=== PATIENT | female | born 1975 | race Two or more races ===

== ENCOUNTER 2024-03-27 12:55 | Emergency (ER) | payer OTHER ==
[~2024-03-27] VITALS: Ht 157.5 cm; Wt 55.8 kg
[2024-03-27] MEDS ORDERED: DEXAMETHASONE SODIUM PHOSPHATE 4 MG/ML VIAL IM STA (15:48)
[2024-03-27] MEDS ORDERED: DOXYCYCLINE HYCLATE 100MG IV STA (15:51)
[2024-03-27] MEDS ORDERED: ORPHENADRINE CITRATE 30 MG/ML AMPUL IM STA (15:53)
[2024-03-27] MEDS ORDERED: 3-DAY VAGINAL C21 GM VAG (16:11)
[2024-03-27] MEDS ORDERED: ACIDOPHILUS1 EAC3 PO (16:11)
[2024-03-27] MEDS ORDERED: CIPRO500 MG PO (16:13)
[2024-03-27] MEDS ORDERED: CIPROFLOXA500 MG/5 M PO (16:15)
== END 2024-03-27 17:12 | disposition home or self-care (01) ==
LOC: ER 12:57
DX: N39.0 Urinary tract infection, site not specified (principal); Z88.0 Allergy status to penicillin

== ENCOUNTER 2025-05-03 11:56 | Inpatient (IN) | payer OTHER ==
[~2025-05-03] VITALS: Ht 165.1 cm; Wt 70.3 kg
[~2025-05-03 11:56] MED LIST: 3-DAY VAGINAL C21 GM VAG; ACIDOPHILUS1 EAC3 PO; CIPRO500 MG PO; CIPROFLOXA500 MG/5 M PO
[2025-05-03] MEDS ORDERED: UCERIS9 MG (13:21)
[2025-05-03] MEDS ORDERED: ALBUTEROL2.5 MG/3 M (13:21)
[2025-05-03] MEDS ORDERED: MILLIPRED5 MG PO (13:24)
[2025-05-03] MEDS ORDERED: AZITHROMYCIN250 MG (13:25)
[2025-05-03] MEDS ORDERED: METHYLPREDNISOLONE SOD SUCC 125 MG VIAL IV STA (13:34)
[2025-05-03] MEDS ORDERED: IPRATROPIUM BROMIDE 0.5 MG/2.5 ML AMPUL.NEB IH STA (13:35)
[2025-05-03] MEDS ORDERED: LEVALBUTEROL HCL 1.25 MG/3 ML SOLUTION IH SCH ×2 (13:45→21:00)
[2025-05-03] MEDS ORDERED: METHYLPREDNISOLONE SOD SUCC 125 MG VIAL ONE (15:24)
[2025-05-03 16:30] LABS: BASO % 0.2 % (0.1-1.2); EOS # 0.02 (0.04-0.54); EOS % 0.2 % (0.7-7.0); LYMPH # 1.34 (1.18-3.74); LYMPH % 14.7 % (19.3-53.1); MEAN PLATELET VOLUME 9.10 fl (9.4-12.4); MONO # 0.45 (0.24-0.82); MONO % 4.9 % (4.7-12.5); NEUT # 7.27 (1.56-6.13); NEUT % 79.7 % (34.0-71.1); RED CELL DISTRIBUTION WIDTH 12.5 % (11.6-14.4)
[2025-05-03 17:08] LABS: COVID-19 AG NEGATIVE (NEGATIVE)
[2025-05-03 17:18] LABS: ALT/SGPT 22 U/L (12-78); AST/SGOT 13 U/L (15-37); BILIRUBIN TOTAL 0.60 mg/dL (0.3-1.2); BUN CREA RATIO 21 (7.0-25.0); CREATININE SERUM 0.66 mg/dL (0.55-1.02); GFR 95.19; GLOBULINA 3.9 G/DL (2.4-3.5); GLUCOSE FASTING 102 mg/dL (65-100); OSMOLALITY SERUM 282 MOSM/KG (275-295)
[2025-05-03] MEDS ORDERED: IPRATROPIUM BROMIDE 0.5 MG/2.5 ML AMPUL.NEB IH ONE (17:33)
[2025-05-03] MEDS ORDERED: LEVALBUTEROL HCL 1.25 MG/3 ML SOLUTION IH ONE (17:33)
[2025-05-03] MEDS ORDERED: ACETAMINOPHEN 500 MG GEL..CAP PO PRN (19:45)
[2025-05-03] MEDS ORDERED: OSELTAMIVIR PHOSPHATE 75 MG CAPSULE PO SCH (19:45)
[2025-05-03] MEDS ORDERED: METHYLPREDNISOLONE SOD SUCC 40 MG VIAL IV SCH (19:45)
[2025-05-03] MEDS ORDERED: 0.9 % SODIUM CHLORIDE 1,000 ML IV SCH (19:45)
[2025-05-03] MEDS ORDERED: MONTELUKAST SODIUM 10 MG TABLET PO SCH (19:46)
[2025-05-03] MEDS ORDERED: levoFLOXacin IN DEXTROSE 5 % 150 ML IV SCH (19:46)
[2025-05-03] MEDS ORDERED: FAMOTIDINE/PF 20 MG in 0.9 % SODIUM CHLORIDE 8 ML IV PUSH SCH (19:46)
[2025-05-03 20:32] VITALS: BP 100/60
[2025-05-03] MEDS ORDERED: GUAIFEN/DEXTROMETHORPHAN/PE 10 ML BLIST.PACK PO SCH (21:00)
[2025-05-03] MEDS ORDERED: IPRATROPIUM BROMIDE 0.5 MG/2.5 ML AMPUL.NEB IH SCH (21:00)
[2025-05-03] MEDS ORDERED: GUAIFEN/DEXTROMETHORPHAN/PE 10 ML BLIST.PACK PO ONE (21:02)
[2025-05-03] MEDS ORDERED: levoFLOXacin IN DEXTROSE 5 % 5 MG/ML PIGGYBAG IV ONE (21:02)
[2025-05-03] MEDS ORDERED: MONTELUKAST SODIUM 10 MG TABLET PO ONE (21:02)
[2025-05-03] MEDS ORDERED: OSELTAMIVIR PHOSPHATE 75 MG CAPSULE PO ONE (21:02)
[2025-05-03] MEDS ORDERED: FAMOTIDINE/PF 20 MG/2 ML VIAL ONE (21:02)
[2025-05-03 21:14] LABS: URINE APPEARANCE Clear; URINE BILIRRUBIN Negative (NEGATIVE); URINE BLOOD Negative; URINE COLOR Yellow; URINE GLUCOSE Negative (NEGATIVE); URINE KETONE Trace (NEGATIVE); URINE LEUKOCYTE Negative; URINE NITRATE Negative; URINE PROTEIN Negative (NEGATIVE); URINE UROBILINOGEN 0.2 E.U./dl
[2025-05-03 21:18] LABS: URINE BACTERIA 1397.8 uL (0.0-1933); URINE EPITHELIAL CELLS 15.9 uL (0.0-38.8); URINE RBC 10.5 uL (0.0-20.8); URINE WBC 19.0 uL (0.0-23.2)
[2025-05-03 21:19] LABS: URINE CAST 0.14 uL (0.0-1.40)
[2025-05-03 23:31] VITALS: BP 128/86; O2SAT 97
[2025-05-04 02:59] VITALS: BP 136/87; O2SAT 98
[2025-05-04 06:35] LABS: INR 1.04
[2025-05-04 08:00] VITALS: BP 111/72; O2SAT 97
[2025-05-04] MEDS ORDERED: FLUTICASONE PROPIONATE 50 MCG SPRAY NASAL SCH (12:00)
[2025-05-04] MEDS ORDERED: LORATADINE 10 MG TABLET PO NR (12:15)
[2025-05-04] MEDS ORDERED: IPRATROPIUM/ALBUTEROL SULFATE 3 ML AMPUL.NEB IH SCH (13:00)
[2025-05-04 16:00] VITALS: BP 109/68; O2SAT 96
[2025-05-05 00:30] VITALS: BP 103/64; O2SAT 96
[2025-05-05 06:29] LABS: BASO % 0.1 % (0.1-1.2); EOS # 0.00 (0.04-0.54); EOS % 0.0 % (0.7-7.0); LYMPH # 0.40 (1.18-3.74); LYMPH % 4.3 % (19.3-53.1); MEAN PLATELET VOLUME 9.50 fl (9.4-12.4); MONO # 0.29 (0.24-0.82); MONO % 3.1 % (4.7-12.5); NEUT # 8.44 (1.56-6.13); NEUT % 91.7 % (34.0-71.1); RED CELL DISTRIBUTION WIDTH 12.9 % (11.6-14.4)
[2025-05-05 07:07] LABS: ALT/SGPT 20 U/L (12-78); AST/SGOT 10 U/L (15-37); BILIRUBIN TOTAL 0.45 mg/dL (0.3-1.2); BUN CREA RATIO 21 (7.0-25.0); CREATININE SERUM 0.61 mg/dL (0.55-1.02); GFR 104.24; GLOBULINA 2.9 G/DL (2.4-3.5); GLUCOSE FASTING 126 mg/dL (65-100); OSMOLALITY SERUM 281 MOSM/KG (275-295)
[2025-05-05 08:46] VITALS: BP 124/82; O2SAT 97
[2025-05-05] MEDS ORDERED: LORATADINE 10 MG TABLET PO SCH (09:00)
[2025-05-05 16:08] VITALS: BP 124/84; O2SAT 95
[2025-05-06 00:25] VITALS: BP 110/69; O2SAT 95
[2025-05-06 08:16] VITALS: BP 115/74; O2SAT 95
[2025-05-06 15:20] VITALS: BP 124/78; O2SAT 95
[2025-05-07 00:27] VITALS: BP 125/74; O2SAT 96
[2025-05-07 08:48] VITALS: BP 109/73; O2SAT 98
[2025-05-07 15:56] VITALS: BP 119/75; O2SAT 95
[2025-05-07] MEDS ORDERED: SODIUM CHLORIDE FOR INHALATION 1 VIAL.NEB IH SCH (21:00)
[2025-05-08 00:04] VITALS: BP 120/79; O2SAT 95
[2025-05-08 08:00] VITALS: BP 114/69; O2SAT 97
[2025-05-08 16:00] VITALS: BP 124/73; O2SAT 96
[2025-05-09 00:08] VITALS: BP 118/72; O2SAT 97
[2025-05-09 08:28] VITALS: BP 119/78; O2SAT 99
[2025-05-09] MEDS ORDERED: METHYLPREDNISOLONE SOD SUCC 40 MG VIAL IV SCH (09:00)
[2025-05-09] MEDS ORDERED: SODIUM CHLORIDE 0.45 % 1,000 ML IV SCH (09:15)
[2025-05-09] MEDS ORDERED: METHYLPREDNISOLONE ACETATE 80 MG/ML VIAL IM ONE (09:30)
[2025-05-09] MEDS ORDERED: LEVALBUTEROL HCL 1.25 MG/3 ML SOLUTION IH NR (09:30)
[2025-05-09 12:14] LABS: BASO % 0.1 % (0.1-1.2); EOS # 0.01 (0.04-0.54); EOS % 0.1 % (0.7-7.0); LYMPH # 1.57 (1.18-3.74); LYMPH % 18.1 % (19.3-53.1); MEAN PLATELET VOLUME 9.10 fl (9.4-12.4); MONO # 0.84 (0.24-0.82); MONO % 9.7 % (4.7-12.5); NEUT # 6.19 (1.56-6.13); NEUT % 71.2 % (34.0-71.1); RED CELL DISTRIBUTION WIDTH 13.3 % (11.6-14.4)
[2025-05-09 13:40] LABS: ALT/SGPT 27.0 U/L (12-78); AST/SGOT 11.0 U/L (15-37); BILIRUBIN TOTAL 0.69 mg/dL (0.3-1.2); BUN CREA RATIO 20.0 (7.0-25.0); CREATININE SERUM 0.55 mg/dL (0.55-1.02); GFR 117.48; GLOBULINA 2.9 G/DL (2.4-3.5); GLUCOSE FASTING 74.0 mg/dL (65-100); OSMOLALITY SERUM 281.0 MOSM/KG (275-295)
[2025-05-09] MEDS ORDERED: LEVALBUTEROL HCL 1.25 MG/3 ML SOLUTION IH SCH (14:00)
[2025-05-09 16:56] VITALS: BP 126/84; O2SAT 95
[2025-05-09] MEDS ORDERED: HYDROCODONE/CHLORPHEN P-STIREX 5 ML ML PO SCH (21:00)
[2025-05-10 00:30] VITALS: BP 127/83; O2SAT 96
[2025-05-10 08:36] VITALS: BP 119/79; O2SAT 97
[2025-05-10 16:51] VITALS: BP 114/78; O2SAT 95
[2025-05-11 00:30] VITALS: BP 109/76; O2SAT 97
[2025-05-11 08:39] VITALS: BP 113/75; O2SAT 98
[2025-05-11] MEDS ORDERED: LORATADINE10 MG PO (12:46)
[2025-05-11] MEDS ORDERED: HYDROCODONE-CH115 ML PO (12:46)
[2025-05-11] MEDS ORDERED: ALTIPRES LIQUI473 ML PO (12:46)
[2025-05-11] MEDS ORDERED: XOPENEX CO1.25 MG/0. IH (12:46)
[2025-05-11] MEDS ORDERED: MONTELUKAST SOD10 MG PO (12:47)
[2025-05-11] MEDS ORDERED: FAMOTIDINE20 MG PO (12:47)
[2025-05-11] MEDS ORDERED: FLONASE16 GM NASAL (12:47)
[2025-05-11] MEDS ORDERED: MILLIPRED5 MG PO (12:48)
[2025-05-11] MEDS ORDERED: BREZTRI AEROS10.7 GM IH (12:53)
== END 2025-05-11 15:31 | disposition home or self-care (01) | DRG 203 ==
LOC: ER 11:56 → SURH 20:05 → MEDI 20:05 → SEC-K 20:09 → SURH 22:03
PROVIDERS: General Practice; Internal Medicine Infectious Disease; Physician Assistant Medical; ADMIT Internal Medicine; ATTEND Internal Medicine
PROC: BB24ZZZ Computerized Tomography (CT Scan) of Bilateral Lungs (ICD-10-PCS; principal; 2025-05-03)
PROC: 3E0F7GC Introduction of Other Therapeutic Substance into Respiratory Tract, Via Natural or Artificial Opening (ICD-10-PCS; 2025-05-04)
DX: J45.41 Moderate persistent asthma with (acute) exacerbation (principal); J10.1 Influenza due to other identified influenza virus with other respiratory manifestations